=== PATIENT | male | born 1990 | race Caucasian/White ===

== ENCOUNTER 2017-12-29 07:55 | Emergency (ER) | payer MEDICAID ==
[~2017-12-29] VITALS: Ht 180.3 cm; Wt 72.7 kg
[2017-12-29 08:39] LABS: INFLUENZA TYPE A NEGATIVE FOR TYPE A (NEGATIVE); INFLUENZA TYPE B NEGATIVE FOR TYPE B (NEGATIVE)
[2017-12-29] MEDS ORDERED: ALBUTEROL SULFATE 2.5 MG/0.5 ML NEB SOLUTION NEB ONE (10:15)
[2017-12-29] MEDS ORDERED: IPRATROPIUM BROMIDE 0.5 MG/2.5 ML NEB SOLUTION NEB ONE (10:15)
[2017-12-29 11:10] VITALS: BP 146/74
== END 2017-12-29 11:45 | disposition left against medical advice (07) ==
LOC: EMS 07:57
DX: J40 Bronchitis, not specified as acute or chronic (principal); F17.210 Nicotine dependence, cigarettes, uncomplicated
CPT/HCPCS: 87804; 94640; 99284; J7613

== ENCOUNTER 2017-12-31 07:29 | Emergency (ER) | payer MEDICAID ==
[~2017-12-31] VITALS: Ht 180.3 cm; Wt 72.7 kg
[2017-12-31] MEDS ORDERED: SODIUM CHLORIDE 0.9% 1,000 ML IV ONE ×2 (08:00→09:30)
[2017-12-31] MEDS ORDERED: ACETAMINOPHEN 500 MG TABLET PO ONE (08:00)
[2017-12-31] MEDS ORDERED: IBUPROFEN 600 MG TABLET PO ONE (08:00)
[2017-12-31 10:10] VITALS: BP 126/88
== END 2017-12-31 10:30 | disposition home or self-care (01) ==
LOC: EMS 07:29
DX: J18.9 Pneumonia, unspecified organism (principal); F17.210 Nicotine dependence, cigarettes, uncomplicated
CPT/HCPCS: 71045; 99284; 99406; J7030

== ENCOUNTER 2018-05-29 20:16 | Emergency (ER) | payer MEDICAID ==
[~2018-05-29] VITALS: Ht 180.3 cm; Wt 75.0 kg
[2018-05-29 20:17] VITALS: BP 135/67
== END 2018-05-29 21:35 | disposition home or self-care (01) ==
LOC: EMS 20:16
DX: H60.92 Unspecified otitis externa, left ear (principal); F17.210 Nicotine dependence, cigarettes, uncomplicated
CPT/HCPCS: 99283

== ENCOUNTER 2018-07-02 12:53 | Emergency (ER) | payer MEDICAID ==
[~2018-07-02] VITALS: Ht 177.8 cm; Wt 73.0 kg
[2018-07-02 13:20] VITALS: BP 128/74
== END 2018-07-02 13:59 | disposition home or self-care (01) ==
LOC: EMS 12:54
DX: J06.9 Acute upper respiratory infection, unspecified (principal); F17.210 Nicotine dependence, cigarettes, uncomplicated
CPT/HCPCS: 99282